=== PATIENT | female | born 1995 | race Two or more races ===

== ENCOUNTER 2022-11-13 15:58 | Outpatient (CLI) | payer OTHER | END 2022-11-13 17:00 | disposition home or self-care (01) | LOC: PRENATAL 15:58 | PROVIDERS: ATTEND Obstetrics & Gynecology Maternal & Fetal Medicine | DX: O35.3XX0 Maternal care for (suspected) damage to fetus from viral disease in mother, not applicable or unspecified (principal); O44.00 Complete placenta previa NOS or without hemorrhage, unspecified trimester; O28.1 Abnormal biochemical finding on antenatal screening of mother; Z3A.21 21 weeks gestation of pregnancy ==

== ENCOUNTER 2023-01-01 15:20 | Outpatient (CLI) | payer OTHER | END 2023-01-01 15:29 | disposition home or self-care (01) | LOC: PRENATAL 15:20 | PROVIDERS: ATTEND Obstetrics & Gynecology Maternal & Fetal Medicine | DX: O26.849 Uterine size-date discrepancy, unspecified trimester (principal); O28.1 Abnormal biochemical finding on antenatal screening of mother; Z3A.28 28 weeks gestation of pregnancy ==

== ENCOUNTER 2023-02-08 09:54 | Outpatient (CLI) | payer OTHER | END 2023-02-08 09:55 | disposition home or self-care (01) | LOC: PRENATAL 09:54 | PROVIDERS: ATTEND Obstetrics & Gynecology Maternal & Fetal Medicine | DX: O26.849 Uterine size-date discrepancy, unspecified trimester (principal); O36.8199 Decreased fetal movements, unspecified trimester, other fetus; O28.1 Abnormal biochemical finding on antenatal screening of mother; Z3A.33 33 weeks gestation of pregnancy ==